=== PATIENT | male | born 1950 | race Caucasian/White ===

== ENCOUNTER → 2020-10-26 | Outpatient (CLI) | payer OTHER ==
[~2020-10-26] MED LIST: ALLEGRA180 MG PO; ALLOPURINOL 30300 M1; ASPIRIN EC81 M1; BYSTOLIC10 MG; FISH OIL 1,0001 EAC5; NORCO 5-325 TA1 EACH PO; NORVASC 5 MG TAB5 MG; PRILOSEC 20 MG20 MG; SIMVASTATIN5 MG; ZESTORETIC 20-1 EAC3
== END ==
LOC: MRI
PROVIDERS: ATTEND Orthopaedic Surgery
DX: M48.061 Spinal stenosis, lumbar region without neurogenic claudication (principal)

== ENCOUNTER → 2021-01-17 | Outpatient (CLI) | payer OTHER ==
[~2021-01-17] MED LIST changes: +ALLOPURINOL 10100 M2 PO; +ASA81BEC PO; +DAILY VITAMIN1 EAC6 PO; +ELIQUIS5 MG PO; +FISH OIL 1,0001 EAC9 PO; +LIPITOR 20 MG T20 M1 PO; +METFORMIN HCL500 MG PO; +NASACORT10.8 ML NASAL; +NORVASC5 MG PO; +OXYBUTYNIN CHLO10 MG PO; +ZETIA10 MG PO
== END ==
LOC: PAC 12:31
PROVIDERS: ATTEND Orthopaedic Surgery
DX: M48.061 Spinal stenosis, lumbar region without neurogenic claudication (principal)

== ENCOUNTER 2021-01-24 10:45 | Observation (INO) | payer OTHER ==
[~2021-01-24] VITALS: Ht 170.2 cm; Wt 80.7 kg
[2021-01-24 12:23] VITALS: BP 124/98
[2021-01-24 16:32] VITALS: BP 146/86
[2021-01-24 19:25] VITALS: BP 145/88
[2021-01-25 04:11] VITALS: BP 124/76
[2021-01-25 08:28] VITALS: BP 111/74
--- NOTE | 2021-01-25 10:00 | O ---
[facility] [place] [address] OPERATIVE REPORT Name: TITUS PEREZ Room #: 443-P [facility] Chuck#: [id number] Admission: 01/24/21 Attend Phys: Homar Bella MD Discharge: Date of : 50 Report #: [id number] THIS REPORT FOR: cc: Homar Romero David J. DO Clymer, David J. MD ~ DATE OF SERVICE: 01/24/2021 PREOPERATIVE DIAGNOSIS: Lumbar spinal stenosis with radiculopathy. POSTOPERATIVE DIAGNOSIS: Lumbar spinal stenosis with radiculopathy. PROCEDURE: Decompressive laminectomy L3, L4 and L5 levels with left L4-L5 foraminotomy. SURGEON: Homar Bella MD INDICATIONS: This 70-year-old gentleman complains of rather severe radiating left lower extremity pain with some associated back pain. His clinical findings and x-rays confirm rather significant degenerative spondylosis with facet hypertrophy and ligamentum hypertrophy with mild disk bulging, which causes moderate central canal stenosis and more severe foraminal stenosis, particularly at L4-L5 toward the left side. He has tried conservative measures without benefit and has elected to go ahead with surgical decompression. DESCRIPTION OF PROCEDURE: The patient was taken to the operating room where he was placed under general anesthesia. Prophylactic intravenous antibiotics were administered. He was turned to the prone position. The low back was meticulously prepped and draped. C-arm was used to localize the appropriate level. A midline skin incision was made extending from L3 down to L5 level. This was carried along the paraspinal plane retracting the paraspinal muscles out laterally both toward the left and the right. The lamina of L4 was identified bilaterally and the lower aspect of L3 and the upper aspect of L5 was also exposed. C-arm was used to confirm I was at the appropriate level. At this point, the spinous process at L4 was removed and the lamina of L4 extending both toward the right and left was removed extending out to the facet joint level. The dissection was extended proximally through the inferior one-third of the L3 vertebra and distally through the upper one-third of the L5 lamina. The canal was moderately tight in the midline, but significantly more compressed along the left side, particularly at the L4-L5 facet level. The nerve root was carefully exposed and retracted to the midline. The facet was undercut and the medial 20-30% of the facet was excised. This allowed good visualization of the nerve root and a limited foraminotomy was performed. The neural foramina seemed to be widely open and patent and the nerve root seemed to have no further significant compression or compromise. The right nerve root was also visualized, but was not significantly compromised and a more limited decompression on that [address] [address] OPERATIVE REPORT Name: ANATITUS LANI Room #: 443-P [facility] Gomez [place]#: [id number] Admission: 01/24/21 Attend Phys: Homar Bella MD Discharge: Date of : 50 Report #: [id number] side was performed. The dissection was extended up to the 3-4 level bilaterally and the canal seemed to be opened up nicely and the neural foramina were opened and the nerve roots did not seem to be significantly impaired. The L4-L5 disk was visualized and is mildly prominent, but without a disk herniation and no debridement of the disk itself was necessary. The entire wound was copiously irrigated. Good hemostasis was established. C-arm views confirmed that I was at the appropriate level with a complete laminectomy at L4 bilaterally and a partial laminectomy on the inferior aspect of L3 and the superior aspect of L5 bilaterally. The wound was gently irrigated and packed until good hemostasis was confirmed. 80 mg of Depo-Medrol were left in the epidural space and then covered with a small sheet of Gelfoam soaked in thrombin. The paraspinal muscles were reapproximated using multiple #1 Vicryl sutures. The fascia was also closed with #1 Vicryl. The subcutaneous tissues were closed with 2-0 Monocryl. The skin was closed with skin troy. A sterile dressing was applied. The patient was then awakened and returned to the recovery room in good condition. <ELECTRONICALLY SIGNED> By: Homar Bella MD 01/25/21 1000 [id number] Homar Bella MD /nt
[2021-01-25 10:32] VITALS: BP 111/74
--- NOTE | 2021-01-26 09:34 | D ---
[facility] [place] [address] DISCHARGE SUMMARY Name: TITUS PEREZ Room #: 443-P [facility] Gomez [place]#: [id number] Admission: 01/24/21 Attend Phys: Homar Bella MD Discharge: 01/25/21 Date of : 50 Report #: [id number] THIS REPORT FOR: cc: Homar Romero David J. DO Clymer, David J. MD ~ DATE OF SERVICE: 01/25/2021 FINAL DISCHARGE DIAGNOSES: Degenerative lumbar spondylosis and spinal stenosis with radiculopathy. OPERATION AND PROCEDURE: Decompressive lumbar laminectomy for correction of spinal stenosis. HISTORY: This 70-year-old gentleman complains of persistent and progressive bilateral lower extremity pain and weakness, worse on the left than the right. Clinical exam and radiographic studies confirm moderate degenerative spondylosis with associated spinal stenosis, particularly at L4-5 toward the left side. Given these findings and evidence of radiculopathy, we elected to go ahead with surgical decompression. HOSPITAL COURSE: The patient was admitted and taken to the operating room on 01/24. He underwent a 2-level lumbar laminectomy and foraminotomy. He tolerated this quite well. Postoperatively, he has done quite nicely. He did have some difficulty voiding on the evening after surgery and required a straight catheterization. Following that, he has been able to void without difficulty. He has been able to ambulate independently and is having one more session with physical therapy prior to discharge. He states his legs feel good and strong. He has only minor low back discomfort. He has been tolerating a regular diet and occasional oral pain medication, but at this point feels he really needs little, if any, pain medication. He is anxious for hospital discharge and has assistance at home. DISCHARGE MEDICATIONS: Include amlodipine 5 mg daily, aspirin 81 mg daily, multivitamin once daily, fish oil 2 capsules daily, Lipitor 20 mg daily, allopurinol 400 mg daily, metformin 500 mg daily, Eliquis 5 mg b.i.d., which he will restart in 48 hours, Zetia 10 mg daily. DISCHARGE PLAN: He will continue a diabetic diet at home and gradually advance activity as comfort and strength will allow. I have asked him to call me if there are any problems or questions. We will see him back next week for routine followup and the following week for suture removal. <ELECTRONICALLY SIGNED> By: Homar Bella MD 01/26/21 0934 [id number] Homar Bella MD /nt
== END 2021-01-25 11:38 | disposition home or self-care (01) ==
LOC: OR 10:45 → TBA 10:48 → OR 12:38 → EDSTATUS 15:42 → 4S 16:21 → OR 16:22 → 4S 16:22
PROVIDERS: ADMIT Orthopaedic Surgery; ATTEND Orthopaedic Surgery
DX: M48.061 Spinal stenosis, lumbar region without neurogenic claudication (principal); M47.26 Other spondylosis with radiculopathy, lumbar region; E11.9 Type 2 diabetes mellitus without complications; M79.89 Other specified soft tissue disorders; Z79.899 Other long term (current) drug therapy
CPT/HCPCS: 50010; 50101; 50402; 50704; 50850; 51412; 56525; 62110; 62900; 65130; 70005